=== PATIENT | male | born 1970 | race Caucasian/White ===

== ENCOUNTER 2023-09-17 14:35 | Emergency (ER) | payer SELFPAY ==
[2023-09-17 14:38] VITALS: BP 128/103; PULSE 111; RESP 18; TEMP 36.2; O2SAT 97; BMI 30.7
--- NOTE | 2023-09-17 14:45 | EDS_ITS ---
HPI History of Present Illness HPI Narrative: Patient presents with dog bite to his left thumb that occurred today. 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 Patient states that the dog's immunizations are up-to-date. Patient states his last tetanus was within the last 5 years. Patient describes pain as dull. Patient states nothing makes it worse and nothing makes it better. Patient denies any paresthesias or weakness. Patient denies any other injuries. Chief Complaint: Bite Informant: patient Occured/Mechanism Comment: Dog bite Onset/Context/Timing Onset: Today Context: Sudden Onset Timing: Continuous Quality of Pain: Dull Location: Left thumb Worsened by: Nothing Relieved by: Nothing Associated Symptoms Associated Symptoms: Negative for Parasthesia or Weakness Narrative Tetanus Immunization: <5 years PFSH PFS Medical History (Updated 09/17/23 @ 14:[address] Pete Gallardo, ) Testicular cancer Home Medications ?Medication ?Instructions ?Recorded ?Last Taken ?Type clindamycin HCl 300 mg capsule 300 mg PO Q6H #40 CAPSULES 09/17/23 Unknown Rx (Cleocin HCl) Allergy/AdvReac Type Severity Reaction Status Date / Time bee venom protein (honey Allergy Anaphylaxis Verified 09/17/23 14:38 bee) (bee sting) Penicillins Allergy Hives Verified 09/17/23 14:38 Surgical History (Updated 09/17/23 @ 14:43 by Amelia Shelby) H/O shoulder surgery History of colon resection Social History (Updated 09/17/23 @ 14:[address] Pete Gallardo, ) Smoking Status: Never smoker Smokeless tobacco user: chewing tobacco alcohol intake: current alcohol intake frequency: holidays/special occasions only substance use type: does not use ROS ROS ED Constitutional Constitutional ED: Denies chills or fever(s) Eyes Eyes: Denies blurry vision or change in vision ENT ENT ED: Denies rhinorrhea or sore throat Cardiovascular Cardiovascular: Denies chest pain or palpitations Respiratory/Chest Respiratory/Chest: Denies cough or dyspnea Gastrointestinal Gastrointestinal: Denies nausea or vomiting Genitourinary Genitourinary ED: Denies dysuria or hematuria Musculoskeletal Musculoskeletal: Denies back pain or neck pain Integumentary Denies abscess or rash Neurologic Neurologic: Denies headache(s) or weakness Allergic/Immunologic Allergic/Immunologic ED: Denies mouth swelling or urticaria EXAM Physical Exam Const Vital Signs: 09/17/23 14:38 Temperature 97.2 F L Temperature Source Temporal Pulse Rate 111 H Respiratory Rate 18 Blood Pressure 128/103 H Blood Pressure Mean 111 Pulse Ox 97 Oxygen Delivery Method Room Air Positive well nourished and well developed General Appearance ED: well developed and NAD HEENT Reports moist mucous membranes Neck full ROM and supple Neuro oriented x3, CN's II-XII intact bilaterally, moves all extremities, no focal motor deficits and no sensory deficits noted Sensorium / Orientation: alert Motor Exam: strength 5/5 throughout Psych mental status grossly normal Skin Skin Narrative: There is a puncture wound noted over the palmar surface of the left thumb. There is no active bleeding noted. There is no surrounding erythema. There is no discharge or drainage noted. Sensation was intact to light touch. Capillary refill was less than 2 seconds. There is full range of motion. Strength is 5/5 in flexion and extension of the IP and MP joints. Trauma: puncture MDM MDM MDM Narrative Medical decision making narrative: The wound was cleaned and dressed with a bacitracin dressing. Patient was given a dose of clindamycin here. Patient was given a prescription for clindamycin. Patient was instructed to keep the wound clean and dry. Patient was instructed to follow-up with his primary care physician or the [facility] in 5 to 7 days for wound recheck. Patient understood and was agreeable with the plan. All questions were answered. Discharge Plan Triage Chief Complaint: Bite ED Provider: Pete Gallardo Dx/Rx/DC Orders Clinical Impression: Dog bite of left thumb Instructions: ED Dog Bite Prescriptions: New clindamycin HCl [Cleocin HCl] 300 mg capsule 300 mg PO Q6H Qty: 40 0RF Primary Care Provider: Colby Mireles Referrals: Colby Mireles MD [Primary Care Provider] - 5-7 Days [facility] [Non-Staff] - 5-7 Days Print Language: Bhutanese Disposition Disposition: Home, Self Care
== END 2023-09-17 15:10 | disposition home or self-care (01) ==
LOC: ED 15:09
PROVIDERS: Emergency Provider Emergency Medicine; PCP Family Medicine; Visit Provider Emergency Medicine
DX: S61.052A Open bite of left thumb without damage to nail, initial encounter (principal); W54.0XXA Bitten by dog, initial encounter
CPT/HCPCS: 99283